=== PATIENT | male | born 1965 | race Caucasian/White ===

== ENCOUNTER 2019-01-13 15:05 | Emergency (ER) | payer SELFPAY ==
[2019-01-13 15:06] VITALS: BP 153/94; PULSE 93; RESP 15; RESP 16; TEMP 37.2; O2SAT 97; BMI 21.9
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
[2019-01-13] MEDS: oxyCODONE 5 MG Tablet PO (16:22)
[2019-01-13 18:22] VITALS: BP 142/78; PULSE 89; RESP 14; O2SAT 99
== END 2019-01-13 18:22 | disposition home or self-care (01) ==
PROVIDERS: Emergency Provider Emergency Medicine
DX: M54.2 Cervicalgia (principal); M25.511 Pain in right shoulder; R10.823 Right lower quadrant rebound abdominal tenderness
CPT/HCPCS: 70450; 71046; 72125; 73030; 74176; 99284